=== PATIENT | male | born 1960 | race Two or more races ===

== ENCOUNTER → 2017-02-15 | Outpatient (CLI) | payer OTHER ==
--- NOTE | 2017-02-15 17:04 | RADRPT ---
PROCEDURE: US bilateral lower extremity arteries. CLINICAL INDICATION: Bilateral leg pain. Claudication that interferes significantly with the raj ent's lifestyle. TECHNIQUE: Multiple longitudinal and transverse images of the bilateral lower extremity arteries w ere obtained with felix scale, pulsed Doppler, and color Doppler imaging. COMPARISON: No prior studies are available for comparison. FINDINGS: Right DRIVER WHEELCHAIR:91 cm/sec PSFA:74 cm/sec MSFA:79 cm/sec DSFA:68 cm/sec POP:63 cm/sec INSTRUMENTATION ENGINEERING TECHNICIAN:58 cm/sec DPA:73 cm/sec Left DRIVER WHEELCHAIR:83 cm/sec PSFA:83 cm/sec MSFA:87 cm/sec DSFA:73 cm/sec POP:57 cm/sec INSTRUMENTATION ENGINEERING TECHNICIAN:61 cm/sec DPA:54 cm/sec The right ankle-brachial index is 1.4 and the left ankle-brachial index is 1.2. There is normal triphasic flow throughout bilaterally. IMPRESSION: 1. Normal bilateral lower extremity arterial Doppler. RPTAT: QQ .Demond Sheriff MD, MD Date Time Electronically viewed and signed by .Demond Sheriff MD, on 02/15/2017 17:04 .R/
== END | disposition home or self-care (01) ==
LOC: VAS 11:20
PROVIDERS: ATTEND Specialist
DX: M54.5 Low back pain (principal); I73.9 Peripheral vascular disease, unspecified
CPT/HCPCS: 93922